=== PATIENT | male | born 1950 ===

== ENCOUNTER 2017-10-09 22:40 | Emergency (ER) | payer SELFPAY ==
--- NOTE | 2017-10-09 23:39 | ED PDOC ---
Arrival/HPI - General Time Seen by Provider: 10/09/17 22:43 Historian: Patient - History of Present Illness Narrative History of Present Illness (Text): 10/09/17 23:23 67 year old male, with no significant past medical history, present to he emergency department by Kristian for public intoxication. Patient admits to have been drinking this evening. Patient states he feels fine and denies any drug use. Patient denies any somatic complaints. Patient denies any fever, chills, chest pain, shortness of breath, nausea, vomiting, diarrhea, urinary symptoms, back pain, neck pain, headache, dizziness, or any other complaints. Symptom Onset: Gradual Symptom Course: Unchanged Activities at Onset: Light Context: Street Past Medical History - Provider Review Nursing Documentation Reviewed: Yes Family/Social History - Physician Review Nursing Documentation Reviewed: Yes Family/Social History: No Known Family HX Allergies/Home Meds Allergies/Adverse Reactions: Allergies FISH Allergy (Verified 10/09/17 23:48) RASH Home Medications: Home Meds Medication Instructions Recorded Confirmed No Known Home Med 10/09/17 10/09/17 Review of Systems - Physician Review All systems were reviewed & negative as marked: Yes - Review of Systems Constitutional: absent: Fevers, Other (Chills) Respiratory: absent: SOB Cardiovascular: absent: Chest Pain Gastrointestinal: absent: Diarrhea, Nausea, Vomiting Genitourinary Male: absent: Dysuria, Frequency, Hematuria Musculoskeletal: absent: Back Pain, Neck Pain Neurological: absent: Headache, Dizziness Physical Exam Vital Signs Reviewed: Yes Vital Signs Temp Pulse Resp BP Pulse Ox 10/10/17 03:30 97.8 F 88 18 148/69 100 Temperature: Afebrile Blood Pressure: Normal Pulse: Regular Respiratory Rate: Normal Appearance: Positive for: Well-Appearing, Non-Toxic, Comfortable Pain Distress: None Mental Status: Positive for: Alert and Oriented X 3 - Systems Exam Head: Present: Atraumatic, Normocephalic Pupils: Present: PERRL Extroacular Muscles: Present: EOMI Conjunctiva: Present: Normal Mouth: Present: Moist Mucous Membranes Neck: Present: Normal Range of Motion Respiratory/Chest: Present: Clear to Auscultation, Good Air Exchange. No: Respiratory Distress, Accessory Muscle Use Cardiovascular: Present: Regular Rate and Rhythm, Normal S1, S2. No: Murmurs Abdomen: No: Tenderness, Distention, Peritoneal Signs Back: Present: Normal Inspection Upper Extremity: Present: Normal Inspection. No: Cyanosis, Edema Lower Extremity: Present: Normal Inspection. No: Edema Neurological: Present: GCS=15, CN II-XII Intact, Speech Normal Skin: Present: Warm, Dry, Normal Color. No: Rashes Psychiatric: Present: Alert, Oriented x 3, Normal Insight, Normal Concentration , Intoxicated Medical Decision Making ED Course and Treatment: 10/09/17 23:23 Impression: 67 year old male presents for public intoxication. Plan: -- Reassess and disposition Progress Notes: 10/10/17 03:16 Patient is awake, alert, and sober with a steady gait in the Emergency room. Patient is stable for discharge. - Scribe Statement The provider has reviewed the documentation as recorded by the Scribe Kuldeep Briggs Provider Scribe Attestation: All medical record entries made by the Scribe were at my direction and personally dictated by me. I have reviewed the chart and agree that the record accurately reflects my personal performance of the history, physical exam, medical decision making, and the department course for this patient. I have also personally directed, reviewed, and agree with the discharge instructions and disposition. Disposition/Present on Arrival - Present on Arrival Any Indicators Present on Arrival: No - Disposition Have Diagnosis and Disposition been Completed?: Yes Diagnosis: Alcohol intoxication Disposition: HOME/ ROUTINE Disposition Time: 03:12 Patient Plan: Discharge Condition: GOOD Discharge Instructions (ExitCare): Alcohol Abuse and Alcoholism (DC) Referrals: Alcoholics Anonymous [Outside] - Follow up with primary
[2017-10-09 23:48] VITALS: BMI 26.5
[2017-10-10 03:42] VITALS: BP 148/69; PULSE 88; RESP 18; TEMP 97.8; O2SAT 100
== END 2017-10-10 03:12 | disposition home or self-care (01) ==
LOC: MERGE 22:40 → ED 22:40
DX: F10.129 Alcohol abuse with intoxication, unspecified (principal)